=== PATIENT | male | born 1995 | race Caucasian/White ===

== ENCOUNTER 2016-08-03 13:10 | Emergency (ER) | payer OTHER ==
[2016-08-03 13:20] VITALS: BP 119/57; PULSE 79; RESP 16; TEMP 99; O2SAT 95
--- NOTE | 2016-08-03 14:34 | UCPHY ---
H & P Time Seen by Provider: 08/03/16 14:25 Patient Type: Established HPI/ROS: This patient presents with a chief complaint of a sore throat which began 4 days ago. Initially had headache and myalgias and felt feverish but for the past 2 days the symptoms have resolved. He has had some nasal congestion and occasional cough but denies ear pain, shortness of breath or chest pain. REVIEW OF SYSTEMS: Constitutional: Fever resolved, no malaise Eyes: No complaints ENT: Sore throat, congestion, no ear pain Respiratory: Occasional cough, no shortness of breath Cardiac: Denies shortness of breath Gastrointestinal: Not addressed Genitourinary: Not addressed Musculoskeletal: Myalgias have resolved Skin: No rash Neurological: Headache resolved Smoking Status: Former smoker Physical Exam: GENERAL: Well-appearing, well-nourished and in no acute distress. HEAD: Atraumatic, normocephalic. EYES: sclera anicteric, conjunctiva are normal. ENT: TMs normal, nares patent, oropharynx clear without exudates. Moist mucous membranes. NECK: Normal range of motion, supple without lymphadenopathy or JVD. LUNGS: Breath sounds clear to auscultation bilaterally and equal. No wheezes rales or rhonchi. HEART: Regular rate and rhythm EXTREMITIES: Normal range of motion, NEUROLOGICAL: Cranial nerves II through XII grossly intact. Normal speech, normal gait. PSYCH: Normal mood, normal affect. SKIN: Warm, dry, normal turgor, no visible rashes or lesions. Constitutional: Initial Vital Signs Temperature (C) 37.2 C 08/03/16 13:17 Heart Rate 79 08/03/16 13:17 Respiratory Rate 16 08/03/16 13:17 Blood Pressure 119/57 L 08/03/16 13:17 O2 Sat (%) 95 08/03/16 13:17 O2 Delivery Mode Room Air Allergies/Adverse Reactions: No Known Allergies Allergy (Verified 08/03/16 13:20) Home Medications: Medication Instructions Recorded Lexapro 08/03/16 Medical Decision Making Differential Diagnosis: I believe that this patient has a viral syndrome and that antibiotics are not indicated. - Data Points Laboratory Results: 08/03/16 08/03/16 Unknown 13:22 Group A Strep Screen NEGATIVE (NEGATIVE) Group A Strep DNA Pending Departure - Departure Disposition: Home, Routine, Self-Care Clinical Impression: Pharyngitis Qualifiers: Pharyngitis/tonsillitis etiology: unspecified etiology Qualified Code(s): J02.9 - Acute pharyngitis, unspecified Condition: Good Instructions: Pharyngitis (ED) Additional Instructions: Symptoms persist more than 7 more days you should be re-evaluated. Activity as tolerated. Diet as tolerated. Adult Pain & Fever Control: We recommend Acetaminophen (Tylenol) and Ibuprofen (Motrin, Advil) for pain and fever control. When fever is high or pain severe, both drugs can be used at the same time, but at different intervals. Please note the time differences. Your dose is: Acetaminophen [650]mg every 4 to 6 hours ibuprofen [600]mg every [6] hours with food OR naproxen Sodium (Aleve) [440]mg every 12 hours. Note: do not take Acetaminophen with Hydrocodone (Vicodin, Lortab) or Oxycodone (Percocet). These medications also contain Acetaminophen. No more than 3000 mg of Acetaminophen should be taken in 24 hours (for an adult) . The maximal dose of ibuprofen that it is safe in a 24-hour period is 2400 mg. You may take 400 mg every 4 hours, 600 mg every 6 hours or 800 mg every 8 hours safely. Referrals: TIARA RIOS [Other] - As per Instructions - PQRS PQRS Measurement: Not applicable
== END 2016-08-03 14:40 | disposition home or self-care (01) ==
LOC: CED 13:10
DX: J02.9 Acute pharyngitis, unspecified (principal); Z87.891 Personal history of nicotine dependence
CPT/HCPCS: 87880-PO; 99214-PO; G0463-PO